=== PATIENT | male | born 1950 | race Caucasian/White ===

== ENCOUNTER 2022-11-26 13:27 | Outpatient (CLI) | payer BC ==
[~2022-11-26 13:27] MED LIST: Magnevist 469MG/ML 20 ML VIAL ONE
== END 2022-11-26 13:28 | disposition home or self-care (01) ==
LOC: CSHMRI 13:27
PROVIDERS: ATTEND Urology
DX: C61 Malignant neoplasm of prostate (principal)
CPT/HCPCS: 72197; 82565

== ENCOUNTER 2024-08-07 09:56 | Outpatient (CLI) | payer MEDICARE | END 2024-08-07 09:57 | disposition home or self-care (01) | LOC: CSHRAD 09:56 | PROVIDERS: ATTEND Student in an Organized Health Care Education/Training Program | DX: M79.671 Pain in right foot (principal) ==